=== PATIENT | female | born 1995 | race African-American/Black ===

== ENCOUNTER → 2019-11-10 14:55 | Observation (INO) ==
[~2019-11-10 14:55] MED LIST: Ringers Solution, Lactated 1,000 ML IVC SCH
== END | disposition home or self-care (01) ==
LOC: 1NENULAB
PROVIDERS: ADMIT Obstetrics & Gynecology; ATTEND Obstetrics & Gynecology

== ENCOUNTER → 2019-11-12 23:22 | Observation (INO) ==
[2019-11-12 22:15] LABS: Bacteria,Urine Few per hpf (None-Few); Bilirubin,Urine Negative (Negative); Blood,Urine Negative (Negative); Clarity,Urine Turbid (Clear); Color,Urine Light-Orange (Yellow); Glucose,Urine (UA) Normal (Normal); Ketones,Urine Negative (Negative); Leukocyte Esterase,Urine Trace (Negative); Mucus,Urine Few per lpf (None-Few); Nitrite,Urine Negative (Negative); Protein,Urine Trace mg/dL (Neg-Trace); RBC,Urine 0-3 per hpf (0-3); Specific Gravity,Urine 1.016 (1.010-1.025); Squamous Epithelial Cell,Urine Few per hpf (None-Few); Urobilinogen,Urine Normal (Normal)
== END | disposition home or self-care (01) ==
LOC: 1NENULAB
PROVIDERS: ADMIT Registered Nurse; ATTEND Registered Nurse

== ENCOUNTER 2020-01-07 10:00 | Inpatient (IN) ==
[2020-01-07] MEDS ORDERED: miSOPROStoL 25 MCG TABLET VG PRN (11:21)
[2020-01-07] MEDS ORDERED: Lidocaine 1% 20 ML MDV INFILT PRN (11:21)
[2020-01-07] MEDS ORDERED: *HR* FentaNYL (PF) 100 MCG/2 ML VIAL IVP PRN (11:21)
[2020-01-07] MEDS ORDERED: Naloxone 0.4 MG/ML INJ IVP PRN (11:21)
[2020-01-07] MEDS ORDERED: Metoclopramide 10 MG/2 ML VIAL IVP PRN (11:21)
[2020-01-07] MEDS ORDERED: Famotidine 20 MG/2 ML VIAL IVP PRN (11:21)
[2020-01-07] MEDS ORDERED: Azithromycin 500 MG in 0.9 % Sodium Chloride 250 ML IVPB ONE (11:21)
[2020-01-07] MEDS ORDERED: Ondansetron 4 MG/2 ML VIAL IVP PRN (11:21)
[2020-01-07] MEDS ORDERED: Lidocaine -MPF 2% 5 ML VIAL ONE (11:26)
[2020-01-07 12:10] LABS: Basophils # 0.1 K/mcL (0.0-0.2); Basophils % 0.5 %; Eosinophils # 0.2 K/mcL (0.0-0.6); Eosinophils % 1.8 %; Hematocrit 24.3 % (35.3-44.9); Hemoglobin 8.5 g/dL (11.5-15.4); Immature Granulocytes % 2.4 % (0-4); Lymphocytes # 2.6 K/mcL (0.6-4.6); Mean Corpuscular Hemoglobin 34.7 pg (28.0-33.3); Mean Corpuscular Volume 99.2 fL (83.0-100.0); Mean Platelet Volume 10.2 fL (9.4-12.4); Monocytes # 0.7 K/mcL (0.0-1.3); Monocytes % 5.9 %; Neutrophils # 8.1 K/mcL (1.6-8.9); Nucleated Red Blood Cells 0.3 /100 WBC (0); Platelet Count 404 K/mcL (140-400); Red Blood Count 2.45 M/mcL (3.82-4.97); Red Cell Distribution Width 18.7 % (11.5-14.5); Segmented Neutrophils % 67.4 %
[2020-01-07 12:18] LABS: Amphetamine Screen,Urine Negative ng/mL (Cutoff=1000); Barbiturate Screen,Urine Negative ng/mL (Cutoff=200); Benzodiazepines Screen,Urine Negative ng/mL (Cutoff=200); Cannabinoid Screen,Urine Negative ng/mL (Cutoff = 50); Cocaine Screen,Urine Negative ng/mL (Cutoff= 300); Opiate Screen,Urine Negative ng/mL (Cutoff=300); Phencyclidine Screen,Urine Negative ng/mL (Cutoff=25)
[2020-01-07] MEDS ORDERED: EPHEDrine 50 MG/ML VIAL IVP PRN (12:19)
[2020-01-07] MEDS: Ringers Solution, Lactated 1,000 ML IVC SCH (12:54)
[2020-01-07] MEDS: D5% in 0.45% NACL 1,000 ML IVC SCH (16:47)
[2020-01-07] MEDS ORDERED: Terbutaline 1 MG/ML VIAL SQ ONE (18:16)
[2020-01-09] MEDS: Ringers Solution, Lactated 1,000 ML IVC SCH ×3 (00:55→22:52)
[2020-01-09] MEDS ORDERED: Oxytocin 20 units/ LR 1000 mL 20 UNIT/1,000 ML BAG IVC SCH (04:00)
[2020-01-09] MEDS: Epidural Premix (fent/bupiv) 110 ML EP SCH (11:17)
[2020-01-09 20:52] LABS: Adenovirus Not Detected (Not Detect); Bordetella Pertussis Not Detected (Not Detect); Chlamydophila pneumoniae Not Detected (Not Detect); Coronavirus 229E Not Detected (Not Detect); Coronavirus HKU1 Not Detected (Not Detect); Coronavirus NL63 Not Detected (Not Detect); Coronavirus OC43 Not Detected (Not Detect); Human Metapneumovirus Not Detected (Not Detect); Human Rhinovirus/Enterovirus Not Detected (Not Detect); Influenza A Subtype 2009 H1 Not Detected (Not Detect); Influenza B Not Detected (Not Detect); Mycoplasma pneumoniae Not Detected (Not Detect); Parainfluenza Virus 1 Not Detected (Not Detect); Parainfluenza Virus 2 Not Detected (Not Detect); Parainfluenza Virus 3 Not Detected (Not Detect); Parainfluenza Virus 4 Not Detected (Not Detect); Respiratory Syncytial Virus Not Detected (Not Detect); SARS-CoV-2 Not Detected (Not Detect)
[2020-01-10] MEDS: D5% in 0.45% NACL 1,000 ML IVC SCH (00:52)
[2020-01-10] MEDS: Epidural Premix (fent/bupiv) 110 ML EP SCH (00:59)
[2020-01-10] MEDS ORDERED: *HR* FentaNYL (PF) 100 MCG/2 ML VIAL ONE ×2 (08:19→09:25)
[2020-01-10] MEDS ORDERED: Ropivacaine/PF 0.2% 20 ML VIAL ONE (08:20)
[2020-01-10] MEDS ORDERED: CeFAZolin 2,000 MG/50 ML BAG IVPB ONE (08:37)
[2020-01-10] MEDS ORDERED: Chloroprocaine/PF 20 ML VIAL INFILT ONE ×2 (09:18→09:24)
[2020-01-10] MEDS ORDERED: *HR* Morphine Sulfate/PF 10 MG/10 ML AMPUL ONE (09:25)
[2020-01-10] MEDS ORDERED: Acetaminophen IV 1,000 MG/100 ML INFUS..BTL ONE (09:38)
[2020-01-10] MEDS ORDERED: Ondansetron 4 MG/2 ML VIAL IVP PRN ×2 (09:46→13:28)
[2020-01-10] MEDS ORDERED: *HR* HYDROmorphone PF 0.5 MG/0.5 ML SYRINGE IVP PRN (09:46)
[2020-01-10] MEDS ORDERED: *HR* HYDROMORPHONE 2 MG/ML VIAL ONE (10:30)
[2020-01-10] MEDS ORDERED: Rho Immune Globulin 1,500 UNIT SYRINGE IM ONE (13:28)
[2020-01-10] MEDS ORDERED: Sennosides 8.6 MG TABLET PO PRN (13:28)
[2020-01-10] MEDS ORDERED: Metoclopramide 10 MG/2 ML VIAL IVP PRN (13:28)
[2020-01-10] MEDS: Ibuprofen 600 MG TABLET PO PRN ×2 (14:28→20:28)
[2020-01-10] MEDS: Oxytocin 20 units/ LR 1000 mL 20 UNIT/1,000 ML BAG IVC SCH (14:43)
[2020-01-10] MEDS: cephALEXin 500 MG CAPSULE PO SCH (18:12)
[2020-01-10] MEDS: metroNIDAZOLE 500 MG TABLET PO SCH (18:12)
[2020-01-10] MEDS: *HR* OxyCODONE/APAP 5/325 TABLET PO PRN (18:12)
[2020-01-10] MEDS ORDERED: Terbutaline 1 MG/ML VIAL SQ ONE (19:26)
[2020-01-10] MEDS: Simethicone 80 MG TAB.CHEW PO PRN (19:52)
[2020-01-11] MEDS: metroNIDAZOLE 500 MG TABLET PO SCH ×4 (00:13→20:53)
[2020-01-11] MEDS: cephALEXin 500 MG CAPSULE PO SCH ×4 (00:13→20:53)
[2020-01-11] MEDS: *HR* OxyCODONE/APAP 5/325 TABLET PO PRN ×5 (00:18→20:53)
[2020-01-11] MEDS: Oxytocin 20 units/ LR 1000 mL 20 UNIT/1,000 ML BAG IVC SCH (00:19)
[2020-01-11] MEDS: Ibuprofen 600 MG TABLET PO PRN ×2 (02:24→15:36)
[2020-01-11 04:13] LABS: Basophils # 0.1 K/mcL (0.0-0.2); Basophils % 0.3 %; Eosinophils # 0.2 K/mcL (0.0-0.6); Eosinophils % 0.8 %; Hematocrit 18.9 % (35.3-44.9); Immature Granulocytes % 0.8 % (0-4); Lymphocytes % 11.1 %; Mean Corpuscular HGB Conc 34.9 g/dL (31.6-35.5); Mean Corpuscular Hemoglobin 35.1 pg (28.0-33.3); Mean Corpuscular Volume 100.5 fL (83.0-100.0); Mean Platelet Volume 10.2 fL (9.4-12.4); Monocytes # 0.9 K/mcL (0.0-1.3); Monocytes % 4.7 %; Nucleated Red Blood Cells 0.2 /100 WBC (0); Platelet Count 319 K/mcL (140-400); Red Blood Count 1.88 M/mcL (3.82-4.97); Red Cell Distribution Width 19.4 % (11.5-14.5); Segmented Neutrophils % 82.3 %
[2020-01-11 04:14] LABS: Hemoglobin 6.6 g/dL (11.5-15.4); Neutrophils # 15.1 K/mcL (1.6-8.9); White Blood Count 18.3 K/mcL (4.3-11.1)
[2020-01-11] MEDS: Simethicone 80 MG TAB.CHEW PO PRN ×3 (04:35→20:53)
[2020-01-11] MEDS ORDERED: 0.9 % Sodium Chloride 500 ML ONE (05:20)
[2020-01-11] MEDS: Prenatal Vit/FA 1 EACH TABLET PO SCH (08:14)
[2020-01-11] MEDS: Cyanocobalamin (B-12) 1,000 MCG TABLET PO SCH (08:15)
[2020-01-11] MEDS: Folic Acid 1 MG TABLET PO SCH (08:15)
[2020-01-11] MEDS ORDERED: [UNRECOGNIZED DRUG - OTHER] PO SCH (09:00)
[2020-01-11 20:35] LABS: Basophils # 0.1 K/mcL (0.0-0.2); Basophils % 0.3 %; Eosinophils # 0.2 K/mcL (0.0-0.6); Eosinophils % 1.1 %; Hematocrit 26.4 % (35.3-44.9); Lymphocytes # 1.7 K/mcL (0.6-4.6); Lymphocytes % 9.9 %; Mean Corpuscular HGB Conc 34.8 g/dL (31.6-35.5); Mean Corpuscular Hemoglobin 33.3 pg (28.0-33.3); Mean Corpuscular Volume 95.7 fL (83.0-100.0); Mean Platelet Volume 9.6 fL (9.4-12.4); Monocytes # 0.7 K/mcL (0.0-1.3); Monocytes % 3.9 %; Neutrophils # 14.4 K/mcL (1.6-8.9); Nucleated Red Blood Cells 0.2 /100 WBC (0); Platelet Count 290 K/mcL (140-400); Red Blood Count 2.76 M/mcL (3.82-4.97); Red Cell Distribution Width 18.6 % (11.5-14.5); Segmented Neutrophils % 83.8 %; White Blood Count 17.2 K/mcL (4.3-11.1)
[2020-01-11 20:40] LABS: Hemoglobin 9.2 g/dL (11.5-15.4)
[2020-01-12] MEDS: *HR* OxyCODONE/APAP 5/325 TABLET PO PRN ×2 (01:34→07:19)
[2020-01-12] MEDS: Ibuprofen 600 MG TABLET PO PRN ×2 (01:34→07:19)
[2020-01-12 08:32] LABS: Hematocrit 26.9 % (35.3-44.9); Hemoglobin 9.3 g/dL (11.5-15.4); Mean Corpuscular HGB Conc 34.6 g/dL (31.6-35.5); Mean Corpuscular Hemoglobin 33.1 pg (28.0-33.3); Mean Corpuscular Volume 95.7 fL (83.0-100.0); Platelet Count 325 K/mcL (140-400); Red Blood Count 2.81 M/mcL (3.82-4.97); White Blood Count 15.1 K/mcL (4.3-11.1)
[2020-01-12] MEDS: Prenatal Vit/FA 1 EACH TABLET PO SCH (08:35)
[2020-01-12] MEDS: Folic Acid 1 MG TABLET PO SCH (08:35)
[2020-01-12] MEDS: cephALEXin 500 MG CAPSULE PO SCH (08:35)
[2020-01-12] MEDS: metroNIDAZOLE 500 MG TABLET PO SCH (08:35)
[2020-01-12] MEDS: Cyanocobalamin (B-12) 1,000 MCG TABLET PO SCH (08:36)
[2020-01-12 09:33] VITALS: BP 104/68
== END 2020-01-12 11:39 | disposition home or self-care (01) | DRG 787 ==
LOC: 1NENULAB 10:07 → 1NENUOBS 01-10 12:52
PROVIDERS: ADMIT Obstetrics & Gynecology; ATTEND Obstetrics & Gynecology